=== PATIENT | female | born 1955 | race African-American/Black ===

== ENCOUNTER 2018-04-16 04:41 | Emergency (ER) | payer SELFPAY ==
[2018-04-16] MEDS ORDERED: HEPARIN SODIUM 100 U/ML 5 ML SYG IV ONE ×2 (04:55→05:42)
[2018-04-16 05:10] VITALS: O2SAT 100
--- NOTE | 2018-04-16 05:18 | RAD ---
EXAM: Single view chest. INDICATION: Dyspnea. COMPARISON: Chest x-ray: None. FINDINGS: Cardiac silhouette: Unremarkable. Claudia: Unremarkable. Lobar consolidation: None. Pleural effusion: None. Pneumothorax: None. Other: Right PICC terminates within the SVC. A tracheostomy tube is in place Bones: Unremarkable. Other: None. IMPRESSION: 1. No acute cardiopulmonary process. Electronically signed by: Alo Mireles MD 04/16/2018 5:16 AM CDT Workstation: [id number]
--- NOTE | 2018-04-16 05:23 | ED.PDOC ---
History of Present Illness - General Chief Complaint: Respiratory Problem Stated Complaint: resp distress, vent dependent, Hx ALS Time Seen by Provider: 04/16/18 04:46 Source: Vital Signs reviewed, EMS Exam Limitations: clinical condition, physical impairment - History of Present Illness Initial Comments: Reportedly she is a patient with ALS (vent dependent) who is new to a local facility. She had been in her usual state of health until tonight when the nurses heard her vent alarms. They found her with central cyanosis & pulseless. They started CPR & called EMS. EMS reports that when they arrived CPR was being performed but on a pulse check she had a pulse & a normal rhythm on the monitor. She was dyspneic but that resolved after they suctioned a mucus plug from her tube. Since then there have been no changes. However, by report her baseline mental status is that she can at least open her eyes spontaneously. Timing/Duration: unsure Severity: severe Improving Factors: other - suctioning Worsening Factors: nothing Allergies/Adverse Reactions: Allergies Aspirin Allergy (Verified 04/16/18 05:10) Hydrocodone Allergy (Verified 04/16/18 05:10) Tramadol Allergy (Verified 04/16/18 05:10) Review of Systems - Review of Systems Constitutional: States: see HPI EENTM: States: no symptoms reported Respiratory: States: see HPI Cardiology: States: see HPI Gastrointestinal/Abdominal: States: no symptoms reported Genitourinary: States: no symptoms reported Musculoskeletal: States: no symptoms reported Skin: States: no symptoms reported Neurological: States: see HPI Endocrine: States: no symptoms reported Hematologic/Lymphatic: States: no symptoms reported Unable to Obtain Due To: condition, clinical condition Past Medical History (General) - Patient Medical History Hx Seizures: No Hx Stroke: No Hx Dementia: No Hx Asthma: No Hx of COPD: No Hx Cardiac Disorders: No Hx Congestive Heart Failure: No Hx Pacemaker: No Hx Hypertension: Yes Hx Thyroid Disease: No Hx Diabetes: No Hx Gastroesophageal Reflux: Yes Hx Renal Disease: No Hx Cancer: No Hx of HIV: No Hx Hepatitis C: No Hx MRSA: No Surgical History: noncontributory - Activities of Daily Living [facility]if applicable[facility] Family Medical History - Family History Mother Family History: Unknown Physical Exam - Physical Exam General Appearance: Comfortable, No apparent distress, Lethargic Eye Exam: bilateral normal Ears, Nose, Throat: normal ENT inspection Neck: normal inspection, other - trach Respiratory: lungs clear, normal breath sounds, no respiratory distress, no accessory muscle use Cardiovascular/Chest: regular rate, rhythm, no JVD, no murmur Gastrointestinal/Abdominal: soft, no organomegaly, no pulsatile mass Extremity: normal inspection, normal capillary refill Neurologic: other - opens her eyes partially with a sternal rub Skin Exam: normal color, warm/dry Progress - Progress Progress: 04/16/18 05:40 Erratic BPs (149 vs. 60). HR 103. No change in mental status. PICC line not functioning properly. 04/16/18 06:12 SBP 142. Looking at the ceiling. - Results/Orders Results/Orders: Hgb 8 Hct 25 Tr 0.03 - EKG/XRAY/CT EKG: Sinus, Tachy - HR 106; nml axis, intervals, QRS, ST-T; artifact, no ST T wave changes XRAY: chest - no acute process CT: head: no acute process CT Ordered: Yes - Consult/PCP Time Called: 06:25 Consult/PCP: Transfer accepted by Dr. Estrada. Departure - Departure Clinical Impression: Respiratory failure Qualifiers: Chronicity: acute Respiratory failure complication: unspecified whether with hypoxia or hypercapnia Qualified Code(s): J96.00 - Acute respiratory failure, unspecified whether with hypoxia or hypercapnia Altered mental status Qualifiers: Altered mental status type: stupor Qualified Code(s): R40.1 - Stupor Time of Disposition: 06:26 Disposition: Transfer to Hospital Critical Care Note - Critical Care Note Total Time (mins): 45
[2018-04-16] MEDS ORDERED: SODIUM CHLORIDE 0.9% 1000ML 1,000 ML IVS ONE (05:30)
[2018-04-16] MEDS ORDERED: SODIUM CHLORIDE 0.9% 1000ML 1,000 ML ONE (05:34)
--- NOTE | 2018-04-16 05:34 | CT ---
CT head without contrast on 04/16/2018 CLINICAL INDICATION: Altered mental status status post CPR TECHNIQUE: Multiple axial images are obtained throughout the head without the administration of contrast. This exam was performed according to our departmental dose-optimization program, which includes automated exposure control, adjustment of the mA and/or kV according to patient size and/or use of iterative reconstruction technique. Total DLP is 859.97 mGy*cm. COMPARISON: None FINDINGS: There is mild generalized cerebral atrophy. There is no hydrocephalus. There is no CT evidence of acute infarct. There is no hemorrhage. Good calvert-white differentiation is noted. There are no abnormal extra-axial fluid collections. There is no mass, mass effect or midline shift. No bony abnormality is noted. IMPRESSION: Atrophy with no acute intracranial abnormality. Electronically signed by: Srinivasa Del Castillo 04/16/2018 5:32 AM CDT
[2018-04-16 09:19] VITALS: BP 140/74; TEMP 100.7
== END 2018-04-16 09:39 | disposition short-term general hospital (02) ==
LOC: ER 04:41
DX: J96.00 Acute respiratory failure, unspecified whether with hypoxia or hypercapnia (principal); R41.82 Altered mental status, unspecified; R00.0 Tachycardia, unspecified; G12.21 Amyotrophic lateral sclerosis; I10 Essential (primary) hypertension; K21.9 Gastro-esophageal reflux disease without esophagitis; Z99.11 Dependence on respirator [ventilator] status; Z88.6 Allergy status to analgesic agent; Z88.5 Allergy status to narcotic agent
CPT/HCPCS: 70450; 71045; 80048; 82550; 82553; 84484; 85025; 85610; 85730; 93005; 94002; J1642; J7030